=== PATIENT | male | born 1960 | race Caucasian/White ===

== ENCOUNTER 2018-07-21 09:45 | Emergency (ER) | payer OTHER ==
--- NOTE | 2018-07-21 10:44 | EDM.PDOC ---
ED HPI GENERAL MEDICAL PROBLEM - General Chief Complaint: Genitourinary Problem Stated Complaint: BLOOD IN URINE Time Seen by Provider: 07/21/18 10:00 Source of Information: Reports: Patient, Family History Limitations: Reports: No Limitations - History of Present Illness INITIAL COMMENTS - FREE TEXT/NARRATIVE: 58 yo male comes in with for new onset hematuria and dysuria x 1 day. He states he went to [facility] this AM and saw the blood in his urine. He also has difficulty and pain with urination. He has never had anything like this before. Denies any trauma or recent prolonged retention of urine. No h/o kidney stones or prostate issues. He does have some back pain, but he states that is a chronic issue. Denies F/C, N/V/D, abdominal pain, or any other GI/ symptoms. No other concerns at this time. - Related Data Allergies Allergy/AdvReac Type Severity Reaction Status Date / Time No Known Allergies Allergy Verified 07/21/18 09:55 Home Meds: Home Meds SitaGLIPtin [Januvia] 100 mg PO DAILY 03/24/18 [History] atorvaSTATin [Lipitor] 40 mg PO DAILY 03/24/18 [History] metFORMIN [Glucophage] 500 mg PO DAILY 03/24/18 [History] Acetaminophen [Tylenol] 650 mg PO Q6H PRN 05/15/18 [History] Amiodarone [Cordarone] 200 mg PO BID 05/15/18 [History] Aspirin [[place]eton Aspirin] 81 mg PO DAILY 05/15/18 [History] Benzonatate [Tessalon Perle] 100 mg PO TID 05/15/18 [History] Clopidogrel [Plavix] 75 mg PO DAILY 05/15/18 [History] Fluticasone/Umeclidin/Vilanter [Trelegy Ellipta 100-62.5-25] 1 each IH DAILY [History] Furosemide [Lasix] 20 mg PO DAILY 05/15/18 [History] Losartan [Cozaar] 25 mg PO DAILY 05/15/18 [History] Metoprolol Tartrate 25 mg PO BID 05/15/18 [History] Omeprazole 20 mg PO DAILY 05/15/18 [History] Potassium Chloride 10 meq PO DAILY 05/15/18 [History] Doxycycline [Vibramycin] 100 mg PO BID 42 Days #84 cap 07/21/18 [Rx] Saccharomyces Miguel Adii [Florastor] 250 mg PO BID #104 capsule 07/21/18 [Rx] Past Medical History Cardiovascular History: Reports: High Cholesterol Respiratory History: Reports: Bronchitis, Recurrent, Pneumonia, Recurrent Genitourinary History: Reports: Other (See Below) Other Genitourinary History: punctured kidney Psychiatric History: Reports: Addiction Other Psychiatric History: smokes cigarettes Endocrine/Metabolic History: Reports: Diabetes, Type II Other Oncologic History: going to see oncology soon 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 - Past Surgical History HEENT Surgical History: Reports: Tonsillectomy Other HEENT Surgeries/Procedures: turmor removed on neck GI Surgical History: Reports: Appendectomy, Cholecystectomy, Colonoscopy, Other (See Below) Other GI Surgeries/Procedures: spleenectomy Musculoskeletal Surgical History: Reports: Other (See Below) Other Musculoskeletal Surgeries/Procedures:: left arm surgery Social & Family History - Tobacco Use Smoking Status *Q: Current Every Day Smoker Years of Tobacco use: 40 Packs/Tins Daily: 0.5 - Caffeine Use Caffeine Use: Reports: Soda - Recreational Drug Use Recreational Drug Use: No ED ROS GENERAL - Review of Systems Review Of Systems: ROS reveals no pertinent complaints other than HPI. ED EXAM, RENAL/ - Physical Exam Exam: See Below Exam Limited By: No Limitations General Appearance: Alert, WD/WN, No Apparent Distress Eye Exam: Bilateral Eye: EOMI, Normal Inspection, PERRL Ears: Normal External Exam, Hearing Grossly Normal Nose: Normal Inspection, Normal Mucosa, No Blood Respiratory/Chest: No Respiratory Distress, Lungs Clear, Normal Breath Sounds, No Accessory Muscle Use, Chest Non-Tender Cardiovascular: Normal Peripheral Pulses, Regular Rate, Rhythm, No Edema, No Gallop, No JVD, No Murmur, No Rub GI/Abdominal: Normal Bowel Sounds, Soft, Non-Tender, No Organomegaly, No Distention, No Abnormal Bruit, No Mass (Male) Exam: Deferred Rectal (Males) Exam: Deferred Back Exam: Normal Inspection. No: CVA Tenderness (L), CVA Tenderness (R) Psychiatric: Normal Affect, Normal Mood Skin Exam: Warm, Dry, Intact, Normal Color, No Rash Course - Vital Signs Last Recorded V/S: Last Vital Signs Temp 98.4 F 07/21/18 09:57 Pulse 81 07/21/18 09:57 Resp 16 07/21/18 09:57 BP 107/42 L 07/21/18 09:57 Pulse Ox 91 L 07/21/18 09:57 - Orders/Labs/Meds Orders: Active Orders 24 hr Category Date Time Status CULTURE URINE [RM] Stat Lab 07/21/18 10:15 Received Labs: Laboratory Tests 07/21/18 07/21/18 07/21/18 Range/Units 10:15 10:18 10:18 WBC 16.31 H (4.23-9.07) K/mm3 RBC 6.04 (4.63-6.08) M/mm3 Hgb 17.4 (13.7-17.5) gm/L Hct 53.2 H (40.1-51.0) % MCV 88.1 (79.0-92.2) fl MCH 28.8 (25.7-32.2) pg MCHC 32.7 (32.2-35.5) g/dl RDW Std Deviation 51.4 H (35.1-43.9) fL Plt Count 309 (163-337) K/mm3 MPV 9.3 L (9.4-12.3) fl Neut % (Auto) 72.0 H (34.0-67.9) % Lymph % (Auto) 13.7 L (21.8-53.1) % [place] % (Auto) 11.1 (5.3-12.2) % Eos % (Auto) 2.4 (0.8-7.0) Baso % (Auto) 0.5 (0.1-1.2) % Neut # (Auto) 11.74 H (1.78-5.38) K/mm3 Lymph # (Auto) 2.24 (1.32-3.57) K/mm3 [place] # (Auto) 1.81 H (0.30-0.82) K/mm3 Eos # (Auto) 0.39 (0.04-0.54) K/mm3 Baso # (Auto) 0.08 (0.01-0.08) K/mm3 Manual Slide Review Abnormal smear Sodium 139 (136-145) mEq/L Potassium 4.6 (3.5-5.1) mEq/L Chloride 101 (98-107) mEq/L Carbon Dioxide 29 (21-32) mEq/L Anion Gap 13.6 (5-15) BUN 12 (7-18) mg/dL Creatinine 1.1 (0.7-1.3) mg/dL Est Cr Clr Drug Dosing 74.66 mL/min Estimated GFR (MDRD) > 60 (>60) mL/min BUN/Creatinine Ratio 10.9 L (14-18) Glucose 143 H (74-106) mg/dL Calcium 9.2 (8.5-10.1) mg/dL Total Bilirubin 0.3 (0.2-1.0) mg/dL AST 15 (15-37) U/L ALT 19 (16-63) U/L Alkaline Phosphatase 110 (46-116) U/L C-Reactive Protein 11.4 H* (<1.0) mg/dL Total Protein 8.0 (6.4-8.2) g/dl Albumin 3.3 L (3.4-5.0) g/dl Globulin 4.7 gm/dL Albumin/Globulin Ratio 0.7 L (1-2) PSA Screen (0.0-4.0) ng/mL Urine Color Dark yellow (Yellow) Urine Appearance Slt cloudy H (Clear) Urine pH 6.0 (5.0-8.0) Ur Specific [place] > or = 1.030 (1.005-1.030) Urine Protein 2+ H (Negative) Urine Glucose (UA) Negative (Negative) Urine Ketones Negative (Negative) Urine Occult Blood 3+ H (Negative) Urine Nitrite Negative (Negative) Urine Bilirubin Negative (Negative) Urine Urobilinogen 2.0 H (0.2-1.0) Ur Leukocyte Esterase 1+ H (Negative) Urine RBC 20-30 H (0-5) /hpf Urine WBC 40-50 H (0-5) /hpf Urine WBC Clumps Rare (NOT SEEN) /hpf Ur Epithelial Cells 0-5 (0-5) /hpf Urine Bacteria Few (FEW) /hpf Urine Mucus Moderate H (FEW) /hpf 07/21/18 Range/Units 10:18 WBC (4.23-9.07) K/mm3 RBC (4.63-6.08) M/mm3 Hgb (13.7-17.5) gm/L Hct (40.1-51.0) % MCV (79.0-92.2) fl MCH (25.7-32.2) pg MCHC (32.2-35.5) g/dl RDW Std Deviation (35.1-43.9) fL Plt Count (163-337) K/mm3 MPV (9.4-12.3) fl Neut % (Auto) (34.0-67.9) % Lymph % (Auto) (21.8-53.1) % [place] % (Auto) (5.3-12.2) % Eos % (Auto) (0.8-7.0) Baso % (Auto) (0.1-1.2) % Neut # (Auto) (1.78-5.38) K/mm3 Lymph # (Auto) (1.32-3.57) K/mm3 [place] # (Auto) (0.30-0.82) K/mm3 Eos # (Auto) (0.04-0.54) K/mm3 Baso # (Auto) (0.01-0.08) K/mm3 Manual Slide Review Sodium (136-145) mEq/L Potassium (3.5-5.1) mEq/L Chloride (98-107) mEq/L Carbon Dioxide (21-32) mEq/L Anion Gap (5-15) BUN (7-18) mg/dL Creatinine (0.7-1.3) mg/dL Est Cr Clr Drug Dosing mL/min Estimated GFR (MDRD) (>60) mL/min BUN/Creatinine Ratio (14-18) Glucose (74-106) mg/dL Calcium (8.5-10.1) mg/dL Total Bilirubin (0.2-1.0) mg/dL AST (15-37) U/L ALT (16-63) U/L Alkaline Phosphatase (46-116) U/L C-Reactive Protein (<1.0) mg/dL Total Protein (6.4-8.2) g/dl Albumin (3.4-5.0) g/dl Globulin gm/dL Albumin/Globulin Ratio (1-2) PSA Screen 2.4 (0.0-4.0) ng/mL Urine Color (Yellow) Urine Appearance (Clear) Urine pH (5.0-8.0) Ur Specific [place] (1.005-1.030) Urine Protein (Negative) Urine Glucose (UA) (Negative) Urine Ketones (Negative) Urine Occult Blood (Negative) Urine Nitrite (Negative) Urine Bilirubin (Negative) Urine Urobilinogen (0.2-1.0) Ur Leukocyte Esterase (Negative) Urine RBC (0-5) /hpf Urine WBC (0-5) /hpf Urine WBC Clumps (NOT SEEN) /hpf Ur Epithelial Cells (0-5) /hpf Urine Bacteria (FEW) /hpf Urine Mucus (FEW) /hpf - Re-Assessments/Exams Free Text/Narrative Re-Assessment/Exam: 07/21/18 10:15 Ordered CBC, CMP, CRP, UA, Urine culture, PSA screen 07/21/18 10:43 CBC shows elevated WBC 16.31 CMP, CRP, PSA and UA pending 07/21/18 11:44 Departure - Departure Time of Disposition: 11:45 Disposition: Home, Self-Care 01 Condition: Good Clinical Impression: UTI, Urinary tract infectious disease, Prostatitis - Discharge Information *PRESCRIPTION DRUG MONITORING PROGRAM REVIEWED*: Not Applicable *COPY OF PRESCRIPTION DRUG MONITORING REPORT IN PATIENT MAUREEN: Not Applicable Prescriptions: Doxycycline [Vibramycin] 100 mg PO BID 42 Days #84 cap Saccharomyces Boulardii [Florastor] 250 mg PO BID #104 capsule Instructions: Urinary Tract Infection, Adult, [id number], Prostatitis, Easy- to-Read Referrals: Ray Fried Jr, MD [Primary Care Provider] - Forms: ED Department Discharge Additional Instructions: You were seen in the ED today for new onset pain w/ urination and blood in urine. At this time, your labs show that you have a UTI. Most UTIs in men of this age are caused by prostatitis. Therefore, you will be given antibiotics to cover for both UTI and Prostatitis. You will be on Doxycycline 100mg twice per day for 6 weeks. You will also be given Florastor, a probiotic, twice per day for 7 weeks. Recommend follow up with your primary care provider. Please return to ED if new or worsening symptoms. - My Orders Last 24 Hours: My Active Orders 07/21/18 10:15 CULTURE URINE [RM] Stat - Assessment/Plan Last 24 Hours: My Active Orders 07/21/18 10:15 CULTURE URINE [RM] Stat
== END 2018-07-21 12:30 | disposition home or self-care (01) ==
LOC: JD.ED 09:45
DX: N39.0 Urinary tract infection, site not specified (principal); B96.4 Proteus (mirabilis) (morganii) as the cause of diseases classified elsewhere; N41.9 Inflammatory disease of prostate, unspecified; F17.210 Nicotine dependence, cigarettes, uncomplicated; Z79.84 Long term (current) use of oral hypoglycemic drugs; Z79.899 Other long term (current) drug therapy; E78.00 Pure hypercholesterolemia, unspecified
CPT/HCPCS: 36415; 80053; 81001; 85025; 86140; 87086; 87088; 87186; 99283; G0103